=== PATIENT | female | born 1995 | race American Indian/Alaskan Native ===

== ENCOUNTER 2017-01-31 18:49 | Outpatient (CLI) | payer MEDICAID ==
[2017-01-31 19:34] VITALS: BP 121/70
[2017-01-31 20:37] LABS: Bacteria,Urine 2+ /HPF (Negative); Bilirubin,Urine NEG (Negative); Blood,Urine NEG (Negative); Ketones,Urine NEG (Negative); Leukocyte Esterase,Urine SM (Negative); Mucus,Urine FEW /HPF; Nitrite,Urine NEG (Negative); Protein,Urine <15 mg/dL mg/dL (Negative); Urobilinogen,Urine < 2.0 mg/dL (<2.0)
[2017-01-31] MEDS ORDERED: LACTATED RINGERS 1,000 ML IV ONE (20:39)
[2017-01-31 22:35] LABS: Hematocrit 34.1 % (30.3-42.9); Hemoglobin 11.8 gm/dl (10.1-14.3); Mean Corpuscular HGB Conc 35 % (30-34); Mean Corpuscular Hemoglobin 30 pg (28-32); Mean Corpuscular Volume 86 fl (79-97); Platelet Count 241 K/mm3 (140-440); Red Blood Count 3.98 M/mm3 (3.65-5.03); Red Cell Distribution Width 13.2 % (13.2-15.2); White Blood Count 11.7 K/mm3 (4.5-11.0)
== END 2017-01-31 22:46 | disposition home or self-care (01) ==
LOC: TRG 18:49
PROVIDERS: ATTEND Obstetrics & Gynecology
DX: O47.03 False labor before 37 completed weeks of gestation, third trimester (principal); Z3A.32 32 weeks gestation of pregnancy
CPT/HCPCS: 36415; 59025; 81001; 85027

== ENCOUNTER 2018-09-10 08:12 | Emergency (ER) | payer MEDICAID ==
[2018-09-10 08:25] VITALS: BP 134/87
[2018-09-10 08:42] LABS: Basophils % (Auto) 0.1 % (0.0-1.8); Eosinophils # (Auto) 0.2 K/mm3 (0.0-0.4); Eosinophils % (Auto) 2.7 % (0.0-4.3); Hematocrit 42.4 % (30.3-42.9); Hemoglobin 14.1 gm/dl (10.1-14.3); Lymphocytes # (Auto) 1.4 K/mm3 (1.2-5.4); Lymphocytes % (Auto) 19.4 % (13.4-35.0); Mean Corpuscular HGB Conc 33 % (30-34); Mean Corpuscular Volume 82 fl (79-97); Monocytes # (Auto) 0.5 K/mm3 (0.0-0.8); Monocytes % (Auto) 6.5 % (0.0-7.3); Platelet Count 295 K/mm3 (140-440); Red Blood Count 5.15 M/mm3 (3.65-5.03); Red Cell Distribution Width 14.9 % (13.2-15.2)
--- NOTE | 2018-09-10 08:49 | Emergency Department Report ---
HPI - General Chief Complaint: Abdominal Pain Time Seen by Provider: 09/10/18 08:33 - HPI HPI: 23-year-old -[place] female presents to the emergency department with a complaint of abdominal pain that is to the upper abdomen. Patient feels like th e food that she eats is not digesting and she feels full and bloated despite not eating much. Overall, this is been going on for multiple months but the symptoms occur intermittently for a few days or weeks at a time. When this occurs, the patient says that her only solution is to make herself vomit and empty her stomach. Normal she has no problems having a bowel movement but when these symptoms occur she says that she has decreased bowel movements. She saw a primary care physician or urgent care in the past for this but says that "all they did was run some tests" and she did not appear to get any type of diagnosis or treatment. Otherwise she denies any past medical history. No recent travel or sick contacts at home. She denies any fever, dysuria, vaginal bleeding or discharge. It is associated with some nausea and acid reflux sensation. ED Past Medical Hx - Past Medical History Previous Medical History?: No Hx Hypertension: No Hx Diabetes: No Hx Deep Vein Thrombosis: No Hx Renal Disease: No Hx Sickle Cell Disease: No Hx Seizures: No Hx Asthma: No Hx HIV: No - Surgical History Past Surgical History?: No - Social History Smoking Status: Never Smoker - Medications Home Medications: Home Medications Medication Instructions Recorded Confirmed Last Taken Type Ibuprofen [Motrin 800 MG tab] 800 mg PO Q8HR PRN #30 tablet 06/05/15 Unknown Rx Azithromycin [Zithromax Z-EMANUEL] 250 mg PO QDAY #1 tablet 02/26/16 Unknown Rx Benzonatate [Tessalon Perles] 100 mg PO Q8HR #20 capsule 02/26/16 Unknown Rx Ibuprofen [Motrin] 600 mg PO Q8H PRN #20 tablet 02/26/16 Unknown Rx Prednisone [predniSONE 10 mg 10 mg PO .TAPER #1 tab.ds.pk 02/26/16 Unknown Rx (6-Day Pack, 21 Tabs)] ED Review of Systems ROS: Stated complaint: VOMIT/STOMACH PAIN INTENSE Other details as noted in HPI Comment: All other systems reviewed and negative Constitutional: denies: chills, fever Eyes: denies: eye pain, vision change ENT: denies: ear pain, throat pain Respiratory: denies: cough, shortness of breath Cardiovascular: denies: chest pain, palpitations Gastrointestinal: abdominal pain, nausea Genitourinary: denies: dysuria, discharge Musculoskeletal: denies: back pain, arthralgia Skin: denies: rash, lesions Neurological: denies: headache, weakness Physical Exam - Physical Exam Vital Signs: Vital Signs 09/10/18 08:17 Temperature 98.1 F Pulse Rate 103 H Respiratory 16 Rate Blood Pressure 134/87 O2 Sat by Pulse 97 Oximetry Physical Exam: GENERAL: The patient is well-developed well-nourished. HENT: Normocephalic. Atraumatic. Patient has moist mucous membranes. EYES: Extraocular motions are intact. NECK: Supple. Trachea is midline. CHEST/LUNGS: Clear to auscultation. There is no respiratory distress noted. HEART/CARDIOVASCULAR: Regular. There is no tachycardia. There is no murmur. ABDOMEN: Abdomen is soft. Left upper quadrant tenderness to palpation. No guarding. Patient has normal bowel sounds. There is no abdominal distention. SKIN: Skin is warm and dry. NEURO: The patient is awake, alert, and oriented. The patient is cooperative. The patient has no focal neurologic deficits. The patient has normal speech. MUSCULOSKELETAL: There is no tenderness or deformity. There is no evidence of acute injury. ED Course Vital Signs 09/10/18 08:17 Temperature 98.1 F Pulse Rate 103 H Respiratory 16 Rate Blood Pressure 134/87 O2 Sat by Pulse 97 Oximetry ED Medical Decision Making - Lab Data Result diagrams: 09/10/18 08:30 09/10/18 08:30 - Radiology Data Radiology results: report reviewed, image reviewed interpreted by me: Abdominal x-ray shows nonspecific bowel gas and some air-fluid levels scattered throughout the intestines. CT ABDOMEN AND PELVIS WITH CONTRAST HISTORY: Intermittent mid abdominal pain for the past 2 months COMPARISON: None. TECHNIQUE: Axial CT images were obtained through the abdomen and pelvis after 100 cc of Omnipaque 300 intravenously. Sagittal and coronal reformatted images. All CT scans at this location are performed using CT dose reduction for ALARA by means of automated exposure control. FINDINGS: CT ABDOMEN: Lung Bases: Clear. Liver: No significant abnormality. Biliary: No significant abnormality. Spleen: No significant abnormality. Unenlarged. Pancreas: No significant abnormality. Adrenals: No significant abnormality. Kidneys: No significant abnormality. Lymphatics: No lymphadenopathy. Vasculature: No significant abnormality. Bowel/Peritoneum: No significant abnormality. No free air. No free fluid. There is a mild degree of fluid in the small bowel loops and colon could represent gastroenteritis. CT PELVIS: : No significant abnormality. Osseous Structures: No significant abnormality. Additional Findings: None IMPRESSION: No acute inflammatory process is identified. There is a mild degree of fluid throughout the bowel loops which could represent gastroenteritis. No obstructive process is appreciated. - Medical Decision Making This patient presents to the emergency department with some intermittent abdominal pains and a feeling of fullness to the stomach. Patient's labs have been unremarkable. Abdominal x-ray showed some scattered air-fluid levels. A CT scan of the abdomen and pelvis was done that did not show any acute process. There has been no vomiting while in the emergency department. Her vital signs are stable to ED course. The patient appears safe for discharge home but has been instructed to follow up with both primary care and gastroenterology. She will return to the emergency Department with any worsening of her symptoms or any acute distress. - Differential Diagnosis ileus, bowel obstruction, gastritis, colitis Critical Care Time: No Critical care attestation.: If time is entered above; I have spent that time in minutes in the direct care of this critically ill patient, excluding procedure time. ED Disposition Clinical Impression: Abdominal pain Qualifiers: Abdominal location: unspecified location Qualified Code(s): R10.9 - Unspecified abdominal pain Disposition: DC-01 TO HOME OR SELFCARE Is pt being admited?: No Condition: Stable Instructions: Abdominal Pain (ED) Additional Instructions: Please follow up with a primary care physician in the next few days. It is very important you also follow-up with a woven blind loom tender. I will give you a referral for a local woven blind loom tender, Dr. Rogers, who is part of a much larger group, [facility]. Return to the emergency Department with any worsening of your symptoms or any acute distress. Referrals: JARETH ROGERS MD [Staff Physician] - 3-5 Days Time of Disposition: 12:34
[2018-09-10 09:05] LABS: Alanine Aminotransferase 25 units/L (7-56); BUN/Creatinine Ratio 13; Blood Urea Nitrogen 8 mg/dL (7-17); Calcium 8.9 mg/dL (8.4-10.2); Hemolysis Index 6
[2018-09-10 09:09] LABS: Bilirubin,Urine NEG (Negative); Blood,Urine NEG (Negative); Color,Urine Yellow (Yellow); Mucus,Urine 2+ /HPF; Urobilinogen,Urine < 2.0 mg/dL (<2.0)
--- NOTE | 2018-09-10 09:23 | XRay Report ---
ABDOMEN 2 VIEW(S) INDICATION / CLINICAL INFORMATION: Abdominal pain. COMPARISON: None available. FINDINGS: TUBES / LINES: None. BOWEL GAS PATTERN: There are scattered small air-fluid levels throughout the abdomen. No dilated tracey l or free air. The organ shadows are unremarkable. The lung bases are clear. FREE AIR / EXTRALUMINAL GAS: None seen. ADDITIONAL FINDINGS: No significant additional findings. IMPRESSION: Scattered air-fluid levels throughout the abdomen suggestive of gastroenteritis or mild diffuse ileus . Signer Name: Khanh Linares Jr, MD Signed: 09/10/2018 9:19 AM Workstation Name: [id number]
--- NOTE | 2018-09-10 12:09 | Cat Scan Report ---
CT ABDOMEN AND PELVIS WITH CONTRAST HISTORY: Intermittent mid abdominal pain for the past 2 months COMPARISON: None. TECHNIQUE: Axial CT images were obtained through the abdomen and pelvis after 100 cc of Omnipaque 300 intravenously. Sagittal and coronal reformatted images. All CT scans at this location are performed using CT dose reduction for ALARA by means of automated exposure control. FINDINGS: CT ABDOMEN: Lung Bases: Clear. Liver: No significant abnormality. Biliary: No significant abnormality. Spleen: No significant abnormality. Unenlarged. Pancreas: No significant abnormality. Adrenals: No significant abnormality. Kidneys: No significant abnormality. Lymphatics: No lymphadenopathy. Vasculature: No significant abnormality. Bowel/Peritoneum: No significant abnormality. No free air. No free fluid. There is a mild degree of f luid in the small bowel loops and colon could represent gastroenteritis. CT PELVIS: : No significant abnormality. Osseous Structures: No significant abnormality. Additional Findings: None IMPRESSION: No acute inflammatory process is identified. There is a mild degree of fluid throughout the bowel loo ps which could represent gastroenteritis. No obstructive process is appreciated. Signer Name: Khanh Linares Jr, MD Signed: 09/10/2018 12:05 PM Workstation Name: [id number]
== END 2018-09-10 13:02 | disposition home or self-care (01) ==
LOC: ED 08:12
DX: R10.12 Left upper quadrant pain (principal); K21.9 Gastro-esophageal reflux disease without esophagitis; Z79.1 Long term (current) use of non-steroidal anti-inflammatories (NSAID); Z79.899 Other long term (current) drug therapy
CPT/HCPCS: 36415; 74019; 74177; 80053; 81001; 84703; 85025; 99284; Q9967

== ENCOUNTER → 2019-12-12 23:56 | Emergency (ER) | payer MEDICAID, OTHER | END | disposition left against medical advice (07) | LOC: ED 23:56 | DX: K13.79 Other lesions of oral mucosa (principal); Z53.21 Procedure and treatment not carried out due to patient leaving prior to being seen by health care provider ==

== ENCOUNTER 2019-12-13 20:41 | Emergency (ER) | payer MEDICAID ==
[2019-12-13 21:46] VITALS: BP 138/85
--- NOTE | 2019-12-13 23:16 | Emergency Department Report ---
ED ENT HPI - General Chief complaint: Dental/Oral Stated complaint: TOOTH PAIN Time Seen by Provider: 12/13/19 23:03 Source: patient Mode of arrival: Ambulatory Limitations: No Limitations - History of Present Illness Initial comments: Patient is a 24-year-old female that presents emergency room with complaints of tooth pain. Patient states the tooth pain started 3 days ago. Patient dates she has an appointment with a dentist on Monday of next week. Patient denies swelling or abscess. Patient denies fever and chills. Patient denies recent travel. Patient denies recent international travel. Patient denies exposure to the novel coronavirus. Patient denies sick contacts. Patient denies fever and chills. Patient denies cough. Patient denies diarrhea. Patient denies coming in contact with anybody with symptoms of the novel coronavirus. MD complaint: tooth pain -: Sudden, days(s) Location: tooth # Severity: severe Severity scale (0 -10): 8 Quality: stabbing Consistency: constant Improves with: NSAID, rest Worsens with: eating Context- Dental: history of dental caries, poor dental care Associated Symptoms: gum swelling, toothache. denies: fever, cough, pain with swallowing, sore throat, tinnitus, hearing loss, discharge from ear, rhinorrhea - Related Data Previous Rx's Medication Instructions Recorded Last Taken Type Ibuprofen [Motrin 800 MG tab] 800 mg PO Q8HR PRN #30 tablet 06/05/15 Unknown Rx Azithromycin [Zithromax Z-EMANUEL] 250 mg PO QDAY #1 tablet 02/26/16 Unknown Rx Benzonatate [Tessalon Perles] 100 mg PO Q8HR #20 capsule 02/26/16 Unknown Rx Ibuprofen [Motrin] 600 mg PO Q8H PRN #20 tablet 02/26/16 Unknown Rx Prednisone [predniSONE 10 mg 10 mg PO .TAPER #1 tab.ds.pk 02/26/16 Unknown Rx (6-Day Pack, 21 Tabs)] Amoxicillin [Amoxicillin TAB] 875 mg PO BID 10 Days #20 tablet 12/13/19 Unknown Rx Allergies Allergy/AdvReac Type Severity Reaction Status Date / Time No Known Allergies Allergy Verified 06/05/15 18:43 ED Dental HPI - General Chief complaint: Dental/Oral Stated complaint: TOOTH PAIN Time Seen by Provider: 12/13/19 23:03 Source: patient Mode of arrival: Ambulatory Limitations: No Limitations - Related Data Previous Rx's Medication Instructions Recorded Last Taken Type Ibuprofen [Motrin 800 MG tab] 800 mg PO Q8HR PRN #30 tablet 06/05/15 Unknown Rx Azithromycin [Zithromax Z-EMANUEL] 250 mg PO QDAY #1 tablet 02/26/16 Unknown Rx Benzonatate [Tessalon Perles] 100 mg PO Q8HR #20 capsule 02/26/16 Unknown Rx Ibuprofen [Motrin] 600 mg PO Q8H PRN #20 tablet 02/26/16 Unknown Rx Prednisone [predniSONE 10 mg 10 mg PO .TAPER #1 tab.ds.pk 02/26/16 Unknown Rx (6-Day Pack, 21 Tabs)] Amoxicillin [Amoxicillin TAB] 875 mg PO BID 10 Days #20 tablet 12/13/19 Unknown Rx Allergies Allergy/AdvReac Type Severity Reaction Status Date / Time No Known Allergies Allergy Verified 06/05/15 18:43 ED Review of Systems ROS: Stated complaint: TOOTH PAIN Other details as noted in HPI Constitutional: denies: chills, fever Eyes: denies: eye pain, eye discharge, vision change ENT: dental pain. denies: ear pain, throat pain Respiratory: denies: cough, shortness of breath, wheezing Cardiovascular: denies: chest pain, palpitations Endocrine: no symptoms reported Gastrointestinal: denies: abdominal pain, nausea, diarrhea Genitourinary: denies: urgency, dysuria, discharge Musculoskeletal: denies: back pain, joint swelling, arthralgia Skin: denies: rash, lesions Neurological: denies: headache, weakness, paresthesias Psychiatric: denies: anxiety, depression Hematological/Lymphatic: denies: easy bleeding, easy bruising ED Past Medical Hx - Past Medical History Previous Medical History?: No Hx Hypertension: No Hx Diabetes: No Hx Deep Vein Thrombosis: No Hx Renal Disease: No Hx Sickle Cell Disease: No Hx Seizures: No Hx Asthma: No Hx HIV: No - Surgical History Past Surgical History?: No - Family History Family history: no significant - Social History Smoking Status: Never Smoker Substance Use Type: None - Medications Home Medications: Home Medications Medication Instructions Recorded Confirmed Last Taken Type Ibuprofen [Motrin 800 MG tab] 800 mg PO Q8HR PRN #30 tablet 06/05/15 Unknown Rx Azithromycin [Zithromax Z-EMANUEL] 250 mg PO QDAY #1 tablet 02/26/16 Unknown Rx Benzonatate [Tessalon Perles] 100 mg PO Q8HR #20 capsule 02/26/16 Unknown Rx Ibuprofen [Motrin] 600 mg PO Q8H PRN #20 tablet 02/26/16 Unknown Rx Prednisone [predniSONE 10 mg 10 mg PO .TAPER #1 tab.ds.pk 02/26/16 Unknown Rx (6-Day Pack, 21 Tabs)] Amoxicillin [Amoxicillin TAB] 875 mg PO BID 10 Days #20 tablet 12/13/19 Unknown Rx ED Physical Exam - General Limitations: No Limitations General appearance: alert, in no apparent distress - Head Head exam: Present: atraumatic, normocephalic - Eye Eye exam: Present: normal appearance - ENT ENT exam: Present: mucous membranes moist, other (Right lower gingival inflammat ion consistent with gingivitis.) - Neck Neck exam: Present: normal inspection - Respiratory Respiratory exam: Present: normal lung sounds bilaterally. Absent: respiratory distress - Cardiovascular Cardiovascular Exam: Present: regular rate, normal rhythm. Absent: systolic murmur, diastolic murmur, rubs, gallop - GI/Abdominal GI/Abdominal exam: Present: soft, normal bowel sounds - Extremities Exam Extremities exam: Present: normal inspection - Back Exam Back exam: Present: normal inspection - Neurological Exam Neurological exam: Present: alert, oriented X3 - Psychiatric Psychiatric exam: Present: normal affect, normal mood - Skin Skin exam: Present: warm, dry, intact, normal color. Absent: rash ED Course Vital Signs 12/13/19 21:45 Temperature 98.4 F Pulse Rate 67 Respiratory 16 Rate Blood Pressure 138/85 O2 Sat by Pulse 100 Oximetry - Reevaluation(s) Reevaluation #1: I discussed all results and clinical findings with patient. I discussed plan of care with patient. Patient agrees with plan of care. Patient is stable for discharge. Patient will be discharged home. Patient given discharge instructions. Patient voiced understanding of discharge instructions. 12/13/19 23:15 ED Medical Decision Making - Medical Decision Making Patient is a 24-year-old female that presents emergency room with complaints of dental pain. Patient on clinical exam was found to have gingivitis. Patient already has a follow-up dental appointment. Patient not require any further emergency medical procedures. Patient was given antibiotics and Profen. Patient stable for discharge. Patient discharged home. Patient encouraged to seek out dental care. - Differential Diagnosis Dental pain, gingivitis, dental infection, Critical care attestation.: If time is entered above; I have spent that time in minutes in the direct care of this critically ill patient, excluding procedure time. ED Disposition Clinical Impression: Pain, dental, Gingivitis, acute Disposition: DC TO HOME OR SELFCARE Is pt being admited?: No Does the pt Need Aspirin: No Condition: Stable Instructions: Cavity Preventive (For the teeth or gums), Dental Caries (ED), Toothache (ED) Additional Instructions: Patient to follow-up with primary care in 2 to 3 days. Patient to follow-up with dentist in 2 to 3 days. Patient to rest. Patient to increase water. Patient to take Tylenol or ibuprofen as needed for pain. Patient to take meds as directed. Patient to return to the ER if condition worsens, changes or new symptoms arise. Prescriptions: Amoxicillin [Amoxicillin TAB] 875 mg PO BID 10 Days #20 tablet Referrals: PRABHJOT ORDOÑEZ MD [Primary Care Provider] - 2-3 Days Time of Disposition: 23:17
== END 2019-12-13 23:20 | disposition home or self-care (01) ==
LOC: ED 20:41
DX: K05.00 Acute gingivitis, plaque induced (principal); K08.89 Other specified disorders of teeth and supporting structures; Z79.1 Long term (current) use of non-steroidal anti-inflammatories (NSAID); Z79.2 Long term (current) use of antibiotics; Z79.899 Other long term (current) drug therapy
CPT/HCPCS: 99282

== ENCOUNTER 2020-01-11 18:56 | Emergency (ER) | payer MEDICAID ==
[2020-01-11 19:21] VITALS: BP 136/84
[2020-01-11] MEDS ORDERED: FAMOTIDINE 20 MG TAB PO ONE (21:24)
[2020-01-11] MEDS ORDERED: dexAMETHasone 20 MG/5 ML VIAL IM ONE (21:24)
--- NOTE | 2020-01-11 21:31 | Emergency Department Report ---
ED Allergic Reaction HPI - General Chief complaint: Allergic Reaction Stated complaint: ALLERGIC REACTION Source: patient Mode of arrival: Ambulatory Limitations: No Limitations - History of Present Illness Initial Comments: Patient is a 24-year-old -[place]ib[place] female with a history of morbid obesity who presents to the ED with complaint of acute onset persistent diffuse erythematous maculopapular urticarial rashes with hoarseness and mild sore throat for the last 1 week. Patient states that she had forgotten that she was allergic to penicillin and has been taking amoxicillin for the last 5 days for acute gingivitis. Patient states that in the last 2 days the symptoms have worsened and at one point she thought that she was having shortness of breath. Patient states that she contacted her primary care physician who told her to stop taking the amoxicillin and to come to the ED for evaluation. Patient states that in the last 12 hours the itching and the rashes have significantly worsened as well as the hoarseness in her voice. Patient states that she was advised by her primary care physician to take Benadryl but she has not taken that medicine. Patient denies nausea, vomiting, swollen lips, swollen tongue, swollen throat, dysphagia, dysphonia, swollen face, nasal and sinus congestion, diarrhea, wheezing, shortness of breath, chest pain and abdominal pain, fever and chills. MD Complaint: allergic reaction, hives, other (hoarseness and sore throat) -: Sudden, week(s) (1) Exposure: medication Symptoms: rash, itching, hoarseness. denies: facial swelling, lip swelling, difficulty breathing, orolingual swelling, syncopy, dizziness, nausea, vomiting, other, abdominal pain Severity: severe Treatment Prior to Arrival: none Previous Allergy History: none - Related Data Previous Rx's Medication Instructions Recorded Last Taken Type Ibuprofen [Motrin 800 MG tab] 800 mg PO Q8HR PRN #30 tablet 06/05/15 Unknown Rx Azithromycin [Zithromax Z-EMANUEL] 250 mg PO QDAY #1 tablet 02/26/16 Unknown Rx Benzonatate [Tessalon Perles] 100 mg PO Q8HR #20 capsule 02/26/16 Unknown Rx Ibuprofen [Motrin] 600 mg PO Q8H PRN #20 tablet 02/26/16 Unknown Rx Amoxicillin [Amoxicillin TAB] 875 mg PO BID 10 Days #20 tablet 10/16/20 Unknown Rx Clindamycin [Clindamycin CAP] 300 mg PO Q8HR #60 capsule 01/11/20 Unknown Rx Famotidine [Pepcid] 20 mg PO BID #30 tablet 01/11/20 Unknown Rx Prednisone [predniSONE 10 mg 10 mg PO .TAPER #21 tab.ds.pk 01/11/20 Unknown Rx (6-Day Pack, 21 Tabs)] hydrOXYzine PAMOATE [Vistaril] 25 mg PO Q6HR PRN #30 capsule 01/11/20 Unknown Rx Allergies Allergy/AdvReac Type Severity Reaction Status Date / Time No Known Allergies Allergy Verified 06/05/15 18:43 ED Review of Systems ROS: Stated complaint: ALLERGIC REACTION Other details as noted in HPI Constitutional: denies: chills, fever Eyes: denies: eye pain, eye discharge, vision change ENT: throat pain, dental pain, other (Hoarseness and dysphonia). denies: ear pain Respiratory: denies: cough, shortness of breath, wheezing Cardiovascular: denies: chest pain, palpitations Endocrine: no symptoms reported Gastrointestinal: denies: abdominal pain, nausea, vomiting, diarrhea Genitourinary: denies: urgency, dysuria, discharge Musculoskeletal: denies: back pain, joint swelling, arthralgia Skin: rash (Diffuse erythematous maculopapular urticarial rashes), change in color, pruritus. denies: lesions Neurological: denies: headache, weakness, paresthesias Psychiatric: denies: anxiety, depression Hematological/Lymphatic: denies: easy bleeding, easy bruising ED Past Medical Hx - Past Medical History Previous Medical History?: No Hx Hypertension: No Hx Diabetes: No Hx Deep Vein Thrombosis: No Hx Renal Disease: No Hx Sickle Cell Disease: No Hx Seizures: No Hx Asthma: No Hx HIV: No - Surgical History Past Surgical History?: No - Social History Smoking Status: Never Smoker Substance Use Type: None - Medications Home Medications: Home Medications Medication Instructions Recorded Confirmed Last Taken Type Ibuprofen [Motrin 800 MG tab] 800 mg PO Q8HR PRN #30 tablet 06/05/15 Unknown Rx Azithromycin [Zithromax Z-EMANUEL] 250 mg PO QDAY #1 tablet 02/26/16 Unknown Rx Benzonatate [Tessalon Perles] 100 mg PO Q8HR #20 capsule 02/26/16 Unknown Rx Ibuprofen [Motrin] 600 mg PO Q8H PRN #20 tablet 02/26/16 Unknown Rx Amoxicillin [Amoxicillin TAB] 875 mg PO BID 10 Days #20 tablet 12/13/19 Unknown Rx Clindamycin [Clindamycin CAP] 300 mg PO Q8HR #60 capsule 01/11/20 Unknown Rx Famotidine [Pepcid] 20 mg PO BID #30 tablet 01/11/20 Unknown Rx Prednisone [predniSONE 10 mg 10 mg PO .TAPER #21 tab.ds.pk 01/11/20 Unknown Rx (6-Day Pack, 21 Tabs)] hydrOXYzine PAMOATE [Vistaril] 25 mg PO Q6HR PRN #30 capsule 01/11/20 Unknown Rx ED Physical Exam - General Limitations: No Limitations General appearance: alert, in no apparent distress - Head Head exam: Present: atraumatic, normocephalic, normal inspection - Eye Eye exam: Present: normal appearance, PERRL, EOMI Pupils: Present: normal accommodation - ENT ENT exam: Present: normal exam, normal orophraynx, mucous membranes moist, TM's normal bilaterally, normal external ear exam - Neck Neck exam: Present: normal inspection, full ROM - Respiratory Respiratory exam: Present: normal lung sounds bilaterally. Absent: respiratory distress, wheezes, rales, chest wall tenderness, accessory muscle use, prolonged expiratory - Cardiovascular Cardiovascular Exam: Present: regular rate, normal rhythm, normal heart sounds. Absent: systolic murmur, diastolic murmur, rubs, gallop - GI/Abdominal GI/Abdominal exam: Present: soft, normal bowel sounds. Absent: tenderness, guarding, rebound, hyperactive bowel sounds, hypoactive bowel sounds, organomegaly - Extremities Exam Extremities exam: Present: normal inspection, full ROM, normal capillary refill - Back Exam Back exam: Present: normal inspection, full ROM. Absent: tenderness, CVA tenderness (R), CVA tenderness (L), muscle spasm, paraspinal tenderness, vertebral tenderness - Neurological Exam Neurological exam: Present: alert, oriented X3, CN II-XII intact, normal gait, reflexes normal - Psychiatric Psychiatric exam: Present: normal affect, normal mood - Skin Skin exam: Present: warm, dry, intact, rash (Diffuse erythematous maculopapular urticarial rashes), erythema, urticaria ED Course Vital Signs 01/11/20 19:18 Temperature 98.2 F Pulse Rate 84 Respiratory 18 Rate Blood Pressure 136/84 O2 Sat by Pulse 98 Oximetry ED Medical Decision Making - Medical Decision Making This is a 24-year-old -[place] female with a history of morbid obesity who presents to the ED with complaint of acute onset persistent diffuse erythematous maculopapular urticarial rashes with hoarseness and mild sore throat for the last 1 week. Patient states that she had forgotten that she was allergic to penicillin and has been taking amoxicillin for the last 5 days for acute gingivitis. Patient states that in the last 2 days the symptoms have worsened and at one point she thought that she was having shortness of breath. Patient states that she contacted her primary care physician who told her to stop taking the amoxicillin and to come to the ED for evaluation. Patient states that in the last 12 hours the itching and the rashes have significantly worsened as well as the hoarseness in her voice. Patient states that she was advised by her primary care physician to take Benadryl but she has not taken that medicine. In the ED, patient is alert and oriented x3 and is not in distress. Patient was treated for acute allergic reaction with steroids and Pepcid in the ED. Patient was thereafter discharged home on more steroid Dosepak, Pepcid and Vistaril. Patient also had the amoxicillin substituted with clindamycin for her gingivitis. Patient was advised to follow-up with her primary care physician in 3 to 5 days for reevaluation or return to the ED immediately if her symptoms get worse. - Differential Diagnosis allergic reaction; Urticaria; Itching; angioedema; dyspnea Critical care attestation.: If time is entered above; I have spent that time in minutes in the direct care of this critically ill patient, excluding procedure time. ED Disposition Clinical Impression: Itching with irritation, Allergic urticaria, Acute gingivitis Acute allergic reaction Qualifiers: Encounter type: initial encounter Qualified Code(s): T78.40XA - Allergy, unspecified, initial encounter Disposition: - TO HOME OR SELFCARE Is pt being admited?: No Does the pt Need Aspirin: No Condition: Stable Instructions: Allergies, Adult, [id number]-wi-[id number], Rash, Adult, Gexd-yg-[id number], Hives, Bkrb-we-Bcln Additional Instructions: Your symptoms are due to acute allergic reaction to the penicillin-based medication that you are taking. Therefore stop taking this medication and substitute this antibiotic with a new prescription of clindamycin given during this visit. Take the medications as advised for acute allergic reaction, drink plenty of fluids and follow-up with your primary care physician in 3 to 5 days for reevaluation or return to the ED immediately if symptoms get worse. Prescriptions: Clindamycin [Clindamycin CAP] 300 mg PO Q8HR #60 capsule Famotidine [Pepcid] 20 mg PO BID #30 tablet Prednisone [predniSONE 10 mg (6-Day Pack, 21 Tabs)] 10 mg PO .TAPER #21 tab.ds.pk hydrOXYzine PAMOATE [Vistaril] 25 mg PO Q6HR PRN #30 capsule PRN Reason: Itching Referrals: [facility] [Provider Group] - 7-10 days Time of Disposition: 21:32 Print Language: HEBREW
== END 2020-01-11 22:10 | disposition home or self-care (01) ==
LOC: ED 18:56
DX: T78.40XA Allergy, unspecified, initial encounter (principal); L50.9 Urticaria, unspecified; K05.00 Acute gingivitis, plaque induced; L29.9 Pruritus, unspecified; Z79.1 Long term (current) use of non-steroidal anti-inflammatories (NSAID); Z79.2 Long term (current) use of antibiotics; Z79.899 Other long term (current) drug therapy; X58.XXXA Exposure to other specified factors, initial encounter
CPT/HCPCS: 96372; 99282; J1100

== ENCOUNTER 2020-12-24 13:46 | Emergency (ER) | payer MEDICAID ==
[2020-12-24 14:30] VITALS: BP 109/55
--- NOTE | 2020-12-24 15:35 | XRay Report ---
CHEST 2 VIEWS INDICATION / CLINICAL INFORMATION: covid with sob. COMPARISON: None available. FINDINGS: SUPPORT DEVICES: None. HEART / MEDIASTINUM: No significant abnormality. LUNGS / PLEURA: There are scattered peripheral patchy airspace opacities No pneumothorax. ADDITIONAL FINDINGS: No significant additional findings. IMPRESSION: 1. Scattered peripheral patchy airspace opacities which can be seen with Covid pneumonia. Signer Name: Evaristo Melvin DO Signed: 12/24/2020 3:30 PM Workstation Name: [email or web address]
[2020-12-24] MEDS ORDERED: dexAMETHasone 20 MG/5 ML VIAL IM ONE (17:20)
--- NOTE | 2020-12-24 17:24 | Emergency Department Report ---
ED General Adult HPI - General Chief complaint: Dyspnea/Respdistress Stated complaint: COVID/SIENNA Time Seen by Provider: 12/24/20 14:36 Source: patient Mode of arrival: Ambulatory Limitations: No Limitations - History of Present Illness Initial comments: Patient is a 25-year-old F Maur[place] female with no significant past medical history who is on day 4 of COVID-19 infection. Patient states for the past several days she has had a cough which is minimal today. States she has some shortness of breath with exertion. Patient main complaint is decreased appetite and decreased sense of taste and smell. She also has fever body aches chills. Patient was not vaccinated against COVID-19 and did test +2 days ago. - Related Data Previous Rx's Medication Instructions Recorded Last Taken Type Ibuprofen [Motrin 800 MG tab] 800 mg PO Q8HR PRN #30 tablet 06/05/15 Unknown Rx Azithromycin [Zithromax Z-EMANUEL] 250 mg PO QDAY #1 tablet 02/26/16 Unknown Rx Benzonatate [Tessalon Perles] 100 mg PO Q8HR #20 capsule 02/26/16 Unknown Rx Ibuprofen [Motrin] 600 mg PO Q8H PRN #20 tablet 02/26/16 Unknown Rx Amoxicillin [Amoxicillin TAB] 875 mg PO BID 10 Days #20 tablet 12/13/19 Unknown Rx Clindamycin [Clindamycin CAP] 300 mg PO Q8HR #60 capsule 01/11/20 Unknown Rx Famotidine [Pepcid] 20 mg PO BID #30 tablet 01/11/20 Unknown Rx Prednisone [predniSONE 10 mg 10 mg PO .TAPER #21 tab.ds.pk 01/11/20 Unknown Rx (6-Day Pack, 21 Tabs)] hydrOXYzine PAMOATE [Vistaril] 25 mg PO Q6HR PRN #30 capsule 01/11/20 Unknown Rx Albuterol Mdi (or & Nicu Only) 2 puff IH QID PRN #1 inhalation 12/24/20 Unknown Rx [ProAir HFA Inhaler] Azithromycin [Zithromax Z-EMANUEL] 250 mg PO DAILY #6 tablet 12/24/20 Unknown Rx Benzonatate [Tessalon Perles] 100 mg PO Q8HR #10 capsule 12/24/20 Unknown Rx HYDROcodone/APAP 5-325 [[place] 1 each PO Q6HR PRN #14 tablet 12/24/20 Unknown Rx 5/325] Ondansetron [Zofran Odt] 4 mg PO Q8HR #10 tab.rapdis 12/24/20 Unknown Rx Allergies Allergy/AdvReac Type Severity Reaction Status Date / Time No Known Allergies Allergy Verified 06/05/15 18:43 ED Review of Systems ROS: Stated complaint: COVID/SIENNA Other details as noted in HPI Comment: All other systems reviewed and negative ED Past Medical Hx - Past Medical History Previous Medical History?: No Hx Hypertension: No Hx Diabetes: No Hx Deep Vein Thrombosis: No Hx Renal Disease: No Hx Sickle Cell Disease: No Hx Seizures: No Hx Asthma: No Hx HIV: No - Surgical History Past Surgical History?: No - Social History Smoking Status: Never Smoker Substance Use Type: None - Medications Home Medications: Home Medications Medication Instructions Recorded Confirmed Last Taken Type Ibuprofen [Motrin 800 MG tab] 800 mg PO Q8HR PRN #30 tablet 06/05/15 Unknown Rx Azithromycin [Zithromax Z-EMANUEL] 250 mg PO QDAY #1 tablet 02/26/16 Unknown Rx Benzonatate [Tessalon Perles] 100 mg PO Q8HR #20 capsule 02/26/16 Unknown Rx Ibuprofen [Motrin] 600 mg PO Q8H PRN #20 tablet 02/26/16 Unknown Rx Amoxicillin [Amoxicillin TAB] 875 mg PO BID 10 Days #20 tablet 12/13/19 Unknown Rx Clindamycin [Clindamycin CAP] 300 mg PO Q8HR #60 capsule 01/11/20 Unknown Rx Famotidine [Pepcid] 20 mg PO BID #30 tablet 01/11/20 Unknown Rx Prednisone [predniSONE 10 mg 10 mg PO .TAPER #21 tab.ds.pk 01/11/20 Unknown Rx (6-Day Pack, 21 Tabs)] hydrOXYzine PAMOATE [Vistaril] 25 mg PO Q6HR PRN #30 capsule 01/11/20 Unknown Rx Albuterol Mdi (or & Nicu Only) 2 puff IH QID PRN #1 inhalation 12/24/20 Unknown Rx [ProAir HFA Inhaler] Azithromycin [Zithromax Z-EMANUEL] 250 mg PO DAILY #6 tablet 12/24/20 Unknown Rx Benzonatate [Tessalon Perles] 100 mg PO Q8HR #10 capsule 12/24/20 Unknown Rx HYDROcodone/APAP 5-325 [[place] 1 each PO Q6HR PRN #14 tablet 12/24/20 Unknown Rx 5/325] Ondansetron [Zofran Odt] 4 mg PO Q8HR #10 tab.rapdis 12/24/20 Unknown Rx ED Physical Exam - General Limitations: No Limitations General appearance: alert, in no apparent distress - Head Head exam: Present: atraumatic, normocephalic - Eye Eye exam: Present: normal appearance, PERRL, EOMI - ENT ENT exam: Present: mucous membranes moist - Neck Neck exam: Present: normal inspection - Respiratory Respiratory exam: Present: normal lung sounds bilaterally. Absent: respiratory distress, wheezes, rales, rhonchi - Cardiovascular Cardiovascular Exam: Present: regular rate, normal rhythm, normal heart sounds. Absent: systolic murmur, diastolic murmur, rubs, gallop - GI/Abdominal GI/Abdominal exam: Present: soft, normal bowel sounds. Absent: distended, tenderness, guarding - Extremities Exam Extremities exam: Present: normal inspection - Back Exam Back exam: Present: normal inspection - Neurological Exam Neurological exam: Present: alert, oriented X3 - Psychiatric Psychiatric exam: Present: normal affect, normal mood - Skin Skin exam: Present: warm, dry, intact, normal color. Absent: rash ED Course Vital Signs 12/24/20 14:28 Temperature 102.7 F H Pulse Rate 85 Respiratory 16 Rate Blood Pressure 109/55 [Left] O2 Sat by Pulse 95 Oximetry - Reevaluation(s) Reevaluation #1: 12/24/20 17:22 Ambulated the patient here in the department and her O2 sats went from 96% down to 92. Did experience some mild dizziness. No wheezing. ED Medical Decision Making - EKG Data Interpretation: normal EKG - Radiology Data [facility] [address] [place] [address] XRay Report Signed Patient: IGOR JOSEPH#: [id number] : 1995 Acct:[id number] Age/Sex: 25 / F ADM Date: 12/24/20 Loc: ED Attending Dr: Ordering Physician: NIYA ROJAS MD Date of Service: 12/24/20 Procedure(s): XR chest routine 2V Accession Number(s): [id number] cc: NIYA ROJAS MD Fluoro Time In Minutes: CHEST 2 VIEWS INDICATION / CLINICAL INFORMATION: covid with sob. COMPARISON: None available. FINDINGS: SUPPORT DEVICES: None. HEART / MEDIASTINUM: No significant abnormality. LUNGS / PLEURA: There are scattered peripheral patchy airspace opacities No pneumothorax. ADDITIONAL FINDINGS: No significant additional findings. IMPRESSION: 1. Scattered peripheral patchy airspace opacities which can be seen with Covid pneumonia. Signer Name: Evaristo Melvin Signed: 12/24/2020 3:30 PM Workstation Name: [id number] - Medical Decision Making Patient is a 25-year-old F Maur[place] female who was diagnosed with Covid several days ago. She does have some multifocal infiltrates. Patient O2 sats not dropping to below 90%. Patient given shot of Decadron and sent her home with multiple medications for symptomatic relief. We will start the patient on azithromycin. Patient instructed to get a pulse oximeter for home to monitor O2 sats and return if her O2 sats less than 90% at rest Critical care attestation.: If time is entered above; I have spent that time in minutes in the direct care of this critically ill patient, excluding procedure time. ED Disposition Clinical Impression: Pneumonia due to COVID-19 virus Disposition: 01 HOME / SELF CARE / HOMELESS Is pt being admited?: No Does the pt Need Aspirin: No Condition: Stable Instructions: Bacterial Pneumonia (ED), COVID-19 Frequently Asked Questions, COVID-19, COVID-19: How to Protect Yourself and Others - [facility] Additional Instructions: Please buy a portable home pulse oximeter. These can be found in most pharmacies [email or web address]. They can usually be found at pharmacy such as [facility] and [facility]. Because there is approximately 20 to 38 hours. Please check your oxygen levels regularly. If your oxygen level is below 90% consistently while at rest is a indication that she needs to come back to the hospital to be admitted Referrals: PRIMARY CARE, [Primary Care Provider] - 3-5 Days Time of Disposition: 17:26
== END 2020-12-24 18:00 | disposition home or self-care (01) ==
LOC: ED 13:46
DX: U07.1 COVID-19 (principal); J12.82 Pneumonia due to coronavirus disease 2019
CPT/HCPCS: 71046; 96372; 99283; J1100